=== PATIENT | female | born 1945 | race Caucasian/White ===

== ENCOUNTER 2022-11-05 12:03 | Emergency (ER) | payer MEDICARE, SELFPAY ==
[2022-11-05] VITALS (33 sets, daily range): BP systolic 101–157; BP diastolic 52–81; PULSE 62–113; RESP 9–25; TEMP 36.7; O2SAT 85–100; BMI 30.7
--- NOTE | 2022-11-05 12:12 | DI.RAD.S_ITS ---
PROCEDURE: XR CHEST 1V INDICATIONS: chest pain TECHNIQUE: One view of the chest was acquired. COMPARISON: None. FINDINGS: Surgical changes and devices: Surgical clips are noted in epigastric region and right upper quadrant abdomen.. Lungs and pleura: Lungs are clear. No pleural effusions or pneumothorax. Mediastinum: Mediastinal contours appear normal. Heart size is normal. Bones and chest wall: Ill-defined calcifications are noted in right breast. No suspicious bony lesions. Overlying soft tissues appear unremarkable. IMPRESSION: No acute cardiopulmonary pathology. Right breast calcifications suggest clinical correlation. Dictated by: Kervin Valderrama M.D. on 11/05/2022 at 12:29 Approved by: Kervin Valderrama M.D. on 11/05/2022 at 12:30
--- NOTE | 2022-11-05 12:29 | ED_ITS ---
HPI - Chest Pain <Kim Mason MD - Last Filed: 11/20/22 20:09> General Chief Complaint: Chest Pain Stated Complaint: chest pain Time Seen by Provider: 11/05/22 12:35 Source: patient and EMS Mode of arrival: EMS Limitations: no limitations History of Present Illness HPI narrative: Patient brought in by EMS from home for complaints of tired fatigued dizzy short of breath. Patient is scheduled to see her speech language pathology assistant in [place] tomorrow to schedule replacement of her aortic valve. It is stenotic she states. Patient just had heart catheterization in the past week and states coronary arteries were normal. Her source of tired fatigue dizziness shortness of breath is because of aortic stenosis. She is had echocardiogram in the last 2 months for this. She states she was able to complete tasks as usual prior to yesterday. She would occasionally get very tired if she pushed herself but yesterday with very little activity just walking in her home she became very short of breath dizzy and tired. It did not improve today so she called the ambulance. She states she is not here for chest pain. Ambulance did give her aspirin and nitroglycerin but she states did not make any significant changes. Patient sees cardiology Dr Gonzalez. Related Data Home Medications Medication Instructions Recorded Confirmed atorvastatin 20 mg tablet 20 mg PO DAILY 11/06/22 11/06/22 pantoprazole 40 mg tablet,delayed 40 mg PO DAILY 11/06/22 11/06/22 release warfarin 2 mg tablet See Rx Instructions .Route .COMPLEX 11/06/22 11/06/22 Allergies Allergy/AdvReac Type Severity Reaction Status Date / Time Sulfa (Sulfonamide Allergy Intermediate Rash Verified 11/05/22 12:12 Antibiotics) Review of Systems <Kim Mason MD - Last Filed: 11/20/22 20:09> Review of Systems Narrative: GENERAL: negative chills, positive fatigue, malaise, negative fever, sweats. HEENT: negative sinus pain, ear pain, sore throat RESPIRATORY: Positive dyspnea, negative cough CARDIOVASCULAR: negative chest pain, palpitations GASTROINTESTINAL: negative nausea, vomiting, abdominal pain : negative dysuria, frequency, hematuria MUSCULOSKELETAL: negative muscle or bony pain SKIN: negative rash, skin lesions NEUROLOGIC: negative weakness, numbness, positive dizziness ROS Unobtainable: All systems reviewed & are unremarkable except as noted in HPI and below Patient History <Kim Mason MD - Last Filed: 11/20/22 20:09> Medical History (Updated 11/06/22 @ 10:10 by Marie Fraser RN) GERD (gastroesophageal reflux disease) High cholesterol Social History Smoking Status: Never smoker Smoking Status: Never smoker alcohol intake frequency: a few times a week Substance Use Type: does not use Exam <Kim Mason MD - Last Filed: 11/20/22 20:09> Narrative Exam Narrative: GENERAL: in no distress, not toxic not dyspneic HEAD: Normocephalic. EYES: Pupils equal round ENT: Mucous membranes moist. NECK: Trachea midline. CARDIOVASCULAR: Regular rate and rhythm, there is a audible 4/5 systolic murmur RESPIRATORY: Clear to auscultation. Breath sounds equal bilaterally. No wheezes, rales, or rhonchi. GASTROINTESTINAL: Abdomen soft, non-tender EXTREMITIES: No gross deformities. No ankle edema BACK: No flank tenderness. NEURO: AOx4. SKIN: Warm and dry PSYCH: Not anxious, is cooperative Initial Vital Signs Initial Vital Signs: Vital Signs Pulse Rate 100 H 11/05/22 12:06 Blood Pressure 138/81 11/05/22 12:06 Pulse Oximetry 99 11/05/22 12:06 <Doc Bello DO - Last Filed: 11/06/22 18:06> Initial Vital Signs Initial Vital Signs: Vital Signs Pulse Rate 100 H 11/05/22 12:06 Blood Pressure 138/81 11/05/22 12:06 Pulse Oximetry 99 11/05/22 12:06 <Clark Varela DO - Last Filed: 11/06/22 13:59> Initial Vital Signs Initial Vital Signs: Vital Signs Pulse Rate 100 H 11/05/22 12:06 Blood Pressure 138/81 11/05/22 12:06 Pulse Oximetry 99 11/05/22 12:06 Course <Kim Mason MD - Last Filed: 11/20/22 20:09> Orders Ordered: Discontinued Medications Furosemide (Furosemide 40 Mg/4 Ml Vial) 20 mg IV NOW ONE Stop: 11/05/22 14:29 Last Admin: 11/05/22 15:17 Dose: 20 mg Documented By: NR Vital Signs Vital signs: Vital Signs - 8 hr 11/06/22 10:30 11/06/22 11:00 11/06/22 11:00 Pulse Rate 78 81 Respiratory Rate 20 20 Blood Pressure 121/63 Pulse Oximetry 96 99 Oxygen Delivery Method Oxygen Flow Rate 11/06/22 11:30 11/06/22 12:00 11/06/22 12:00 Pulse Rate 78 83 Respiratory Rate 21 22 Blood Pressure 124/59 L Pulse Oximetry 97 97 Oxygen Delivery Method Nasal Cannula Oxygen Flow Rate 1.5 11/06/22 12:30 11/06/22 13:00 11/06/22 13:00 Pulse Rate 83 84 Respiratory Rate 22 21 Blood Pressure 114/55 L Pulse Oximetry 98 98 Oxygen Delivery Method Nasal Cannula Nasal Cannula Oxygen Flow Rate 1.5 1.5 11/06/22 13:26 11/06/22 13:26 11/06/22 13:30 Pulse Rate 68 81 Respiratory Rate 24 22 Blood Pressure 126/70 Pulse Oximetry 99 98 Oxygen Delivery Method Nasal Cannula Oxygen Flow Rate 1.5 11/06/22 14:00 11/06/22 14:00 Pulse Rate 85 Respiratory Rate 20 Blood Pressure 120/62 Pulse Oximetry 100 Oxygen Delivery Method Oxygen Flow Rate <oDc Bello, DO - Last Filed: 11/06/22 18:06> Orders Ordered: Discontinued Medications Furosemide (Furosemide 40 Mg/4 Ml Vial) 20 mg IV NOW ONE Stop: 11/05/22 14:29 Last Admin: 11/05/22 15:17 Dose: 20 mg Documented By: NR Vital Signs Vital signs: Vital Signs - 8 hr 11/06/22 10:30 11/06/22 11:00 11/06/22 11:00 Pulse Rate 78 81 Respiratory Rate 20 20 Blood Pressure 121/63 Pulse Oximetry 96 99 Oxygen Delivery Method Oxygen Flow Rate 11/06/22 11:30 11/06/22 12:00 11/06/22 12:00 Pulse Rate 78 83 Respiratory Rate 21 22 Blood Pressure 124/59 L Pulse Oximetry 97 97 Oxygen Delivery Method Nasal Cannula Oxygen Flow Rate 1.5 11/06/22 12:30 11/06/22 13:00 11/06/22 13:00 Pulse Rate 83 84 Respiratory Rate 22 21 Blood Pressure 114/55 L Pulse Oximetry 98 98 Oxygen Delivery Method Nasal Cannula Nasal Cannula Oxygen Flow Rate 1.5 1.5 11/06/22 13:26 11/06/22 13:26 11/06/22 13:30 Pulse Rate 68 81 Respiratory Rate 24 22 Blood Pressure 126/70 Pulse Oximetry 99 98 Oxygen Delivery Method Nasal Cannula Oxygen Flow Rate 1.5 11/06/22 14:00 11/06/22 14:00 Pulse Rate 85 Respiratory Rate 20 Blood Pressure 120/62 Pulse Oximetry 100 Oxygen Delivery Method Oxygen Flow Rate <Clark Varela DO - Last Filed: 11/06/22 13:59> Orders Ordered: Discontinued Medications Furosemide (Furosemide 40 Mg/4 Ml Vial) 20 mg IV NOW ONE Stop: 11/05/22 14:29 Last Admin: 11/05/22 15:17 Dose: 20 mg Documented By: NR Vital Signs Vital signs: Vital Signs - 8 hr 11/06/22 10:30 11/06/22 11:00 11/06/22 11:00 Pulse Rate 78 81 Respiratory Rate 20 20 Blood Pressure 121/63 Pulse Oximetry 96 99 Oxygen Delivery Method Oxygen Flow Rate 11/06/22 11:30 11/06/22 12:00 11/06/22 12:00 Pulse Rate 78 83 Respiratory Rate 21 22 Blood Pressure 124/59 L Pulse Oximetry 97 97 Oxygen Delivery Method Nasal Cannula Oxygen Flow Rate 1.5 11/06/22 12:30 11/06/22 13:00 11/06/22 13:00 Pulse Rate 83 84 Respiratory Rate 22 21 Blood Pressure 114/55 L Pulse Oximetry 98 98 Oxygen Delivery Method Nasal Cannula Nasal Cannula Oxygen Flow Rate 1.5 1.5 11/06/22 13:26 11/06/22 13:26 11/06/22 13:30 Pulse Rate 68 81 Respiratory Rate 24 22 Blood Pressure 126/70 Pulse Oximetry 99 98 Oxygen Delivery Method Nasal Cannula Oxygen Flow Rate 1.5 11/06/22 14:00 11/06/22 14:00 Pulse Rate 85 Respiratory Rate 20 Blood Pressure 120/62 Pulse Oximetry 100 Oxygen Delivery Method Oxygen Flow Rate MDM - Chest Pain <Kim Mason MD - Last Filed: 11/20/22 20:09> Lab Data 11/06/22 10:15 11/06/22 10:15 Labs: Lab Results 11/05/22 11/05/22 11/05/22 Range/Units 12:04 12:04 12:04 WBC 6.8 (4.5-11.0) X10^3/uL RBC 4.97 (4.0-5.2) X10^6/uL Hgb 14.2 (12.0-16.0) g/dL Hct 41.6 (36-46) % MCV 83.7 (80-100) fL MCH 28.5 (26-34) PG MCHC 34.0 (30-36) % RDW 14.9 H (11.6-14.8) % Plt Count 264 (150-400) X10^3/uL Neut % (Auto) 74.4 (50-75) % Lymph % (Auto) 17.0 L (25-40) % Saline % (Auto) 5.1 (3-14) % Eos % (Auto) 2.6 (2-4) % Baso % (Auto) 0.9 (0-2) % Neut # (Auto) 5000 (7710-8984) /uL Lymph # (Auto) 1200 (6893-3295) /uL Saline # (Auto) 300 (0-900) /uL Eos # (Auto) 200 (0-450) /uL Baso # (Auto) 100 (0-100) /uL PT (10.1-12.7) SECONDS INR (0.9-1.3) APTT (26-36) SECONDS Sodium 140 (137-145) mmol/L Potassium 4.2 (3.4-5.1) mmol/L Chloride 103 (98-107) mmol/L Carbon Dioxide 28 (22-32) mmol/L BUN 16 (7-17) mg/dL Creatinine 1.11 H (0.52-1.04) mg/dL Estimated GFR 51 L (>60) mL/min BUN/Creatinine Ratio 14.4 (6-22) Glucose 107 (80-110) mg/dL Calcium 9.5 (8.4-10.2) mg/dL Total Bilirubin 0.8 (0.2-1.3) mg/dL AST 22 (14-36) IU/L ALT 17 (<35) IU/L Alkaline Phosphatase 131 H (38-126) U/L Total Creatine Kinase 49 (30-135) U/L CK-MB (CK-2) TNP CK-MB (CK-2) Rel Index TNP Troponin I < 0.012 (0.01-0.034) ng/mL NT-Pro-B Natriuret Pep 354 (<450) pg/mL Total Protein 7.6 (6.3-8.2) g/dL Albumin 4.1 (3.5-5.0) g/dL Globulin 3.5 (1.7-4.1) g/dL Albumin/Globulin Ratio 1.2 (1.0-2.8) Lipase 176 (23-300) U/L Urine RBC (0-5/HPF) Urine WBC (0-5/HPF) Ur Squamous Epith Cells (0-5/HPF) Urine Bacteria (None) Ur Culture Indicated? SARS-CoV-2 (PCR) (Negative) 11/05/22 11/05/22 11/05/22 Range/Units 13:02 14:10 18:26 WBC (4.5-11.0) X10^3/uL RBC (4.0-5.2) X10^6/uL Hgb (12.0-16.0) g/dL Hct (36-46) % MCV (80-100) fL MCH (26-34) PG MCHC (30-36) % RDW (11.6-14.8) % Plt Count (150-400) X10^3/uL Neut % (Auto) (50-75) % Lymph % (Auto) (25-40) % Saline % (Auto) (3-14) % Eos % (Auto) (2-4) % Baso % (Auto) (0-2) % Neut # (Auto) (9898-1266) /uL Lymph # (Auto) (8131-3388) /uL Saline # (Auto) (0-900) /uL Eos # (Auto) (0-450) /uL Baso # (Auto) (0-100) /uL PT (10.1-12.7) SECONDS INR (0.9-1.3) APTT (26-36) SECONDS Sodium (137-145) mmol/L Potassium (3.4-5.1) mmol/L Chloride (98-107) mmol/L Carbon Dioxide (22-32) mmol/L BUN (7-17) mg/dL Creatinine (0.52-1.04) mg/dL Estimated GFR (>60) mL/min BUN/Creatinine Ratio (6-22) Glucose (80-110) mg/dL Calcium (8.4-10.2) mg/dL Total Bilirubin (0.2-1.3) mg/dL AST (14-36) IU/L ALT (<35) IU/L Alkaline Phosphatase (38-126) U/L Total Creatine Kinase (30-135) U/L CK-MB (CK-2) CK-MB (CK-2) Rel Index Troponin I < 0.012 (0.01-0.034) ng/mL NT-Pro-B Natriuret Pep (<450) pg/mL Total Protein (6.3-8.2) g/dL Albumin (3.5-5.0) g/dL Globulin (1.7-4.1) g/dL Albumin/Globulin Ratio (1.0-2.8) Lipase (23-300) U/L Urine RBC 0-1/hpf (0-5/HPF) Urine WBC 0-1/hpf (0-5/HPF) Ur Squamous Epith Cells 0-1 /hpf (0-5/HPF) Urine Bacteria Occasional (0-1) (None) Ur Culture Indicated? Cult not indicated SARS-CoV-2 (PCR) Negative (Negative) 11/06/22 11/06/22 11/06/22 Range/Units 10:15 10:15 10:15 WBC 7.1 (4.5-11.0) X10^3/uL RBC 4.94 (4.0-5.2) X10^6/uL Hgb 14.1 (12.0-16.0) g/dL Hct 41.3 (36-46) % MCV 83.6 (80-100) fL MCH 28.6 (26-34) PG MCHC 34.2 (30-36) % RDW 14.9 H (11.6-14.8) % Plt Count 264 (150-400) X10^3/uL Neut % (Auto) 72.8 (50-75) % Lymph % (Auto) 17.1 L (25-40) % Saline % (Auto) 7.2 (3-14) % Eos % (Auto) 2.1 (2-4) % Baso % (Auto) 0.8 (0-2) % Neut # (Auto) 5200 (0701-8864) /uL Lymph # (Auto) 1200 (5788-7624) /uL Saline # (Auto) 500 (0-900) /uL Eos # (Auto) 100 (0-450) /uL Baso # (Auto) 100 (0-100) /uL PT 27.5 H (10.1-12.7) SECONDS INR 2.4 H (0.9-1.3) APTT 38 H (26-36) SECONDS Sodium 136 L (137-145) mmol/L Potassium 4.6 (3.4-5.1) mmol/L Chloride 101 (98-107) mmol/L Carbon Dioxide 24 (22-32) mmol/L BUN 18 H (7-17) mg/dL Creatinine 1.01 (0.52-1.04) mg/dL Estimated GFR 57 L (>60) mL/min BUN/Creatinine Ratio 17.8 (6-22) Glucose 116 H (80-110) mg/dL Calcium 9.1 (8.4-10.2) mg/dL Total Bilirubin 1.0 (0.2-1.3) mg/dL AST 27 (14-36) IU/L ALT 18 (<35) IU/L Alkaline Phosphatase 99 (38-126) U/L Total Creatine Kinase 49 (30-135) U/L CK-MB (CK-2) TNP CK-MB (CK-2) Rel Index TNP Troponin I < 0.012 (0.01-0.034) ng/mL NT-Pro-B Natriuret Pep (<450) pg/mL Total Protein 7.5 (6.3-8.2) g/dL Albumin 4.0 (3.5-5.0) g/dL Globulin 3.5 (1.7-4.1) g/dL Albumin/Globulin Ratio 1.1 (1.0-2.8) Lipase (23-300) U/L Urine RBC (0-5/HPF) Urine WBC (0-5/HPF) Ur Squamous Epith Cells (0-5/HPF) Urine Bacteria (None) Ur Culture Indicated? SARS-CoV-2 (PCR) (Negative) Urine Dip Bedside Urine Glucose Negative Bedside Urine Bilirubin - Negative Bedside Urine Ketone - Negative Urine Specific [place] 1.000 Bedside Urine Occult Blood - Negative Bedside Urine pH 7.5 Bedside Urine Protein - Negative Bedside Urine Urobilinogen - Negative Bedside Urine Nitrite - Negative Bedside Urine Leukocytes +/- 15 Esterase Imaging Data Chest x-ray: Radiologist's Impression: [address] [address] XRay Report Signed Patient: Violetta Zelaya MR#: [id number] : 1945 Acct:[id number] Age/Sex: 77 / F Date of Service: 11/05/22 Loc: ED Accession Number: [id number] ?? Procedure: XR chest 1V Ordering Provider: Kim Mason MD PROCEDURE:? XR CHEST 1V ? INDICATIONS:? chest pain ? TECHNIQUE:? One view of the chest was acquired.? ? COMPARISON:? None. ? FINDINGS:? ? Surgical changes and devices:? Surgical clips are noted in epigastric region and right upper quadrant abdomen..? ? Lungs and pleura:? Lungs are clear.? No pleural effusions or pneumothorax.? ? Mediastinum:? Mediastinal contours appear normal.? Heart size is normal.? ? Bones and chest wall:? Ill-defined calcifications are noted in right breast.? No suspicious bony lesions.? Overlying soft tissues appear unremarkable.? ? IMPRESSION:? No acute cardiopulmonary pathology. Right breast calcifications suggest clinical correlation.? ? Dictated by: Kervin Valderrama M.D. on 11/05/2022 at 12:29 ? ? Approved by: Kervin Valderrama M.D. on 11/05/2022 at 12:30 ? Echocardiogram: Radiologist's Impression: [address] [address] Echocardiography Report Signed Patient: Violetta Zelaya MR#: [id number] : 1945 Acct:[id number] Age/Sex: 77 / F Date of Service: 11/05/22 Loc: ED Accession Number: [id number] ?? Procedure: EC echo doppler complete Ordering Provider: Kim Mason MD ? [facility] +---------+? Hospital? +---------+ : ? :? [address] ? : ? : : ? :? [place], [place] ? : ? : : ? :? [id number] ? : ? : : ? : ? Phone: [phone] : ? : +[phone]? [phone]? +---------+ ? Echocardiogram Report + + :Name: VIOLETTA ZELAYA ? Study Date: 11/05/2022 ? Height: 66 in? : :[facility] ? ? ReadingLocation: ? Weight: 190 lb : : ? Gender: Female ? BSA: 2.0 m2? ? : :: 1945? Age: 77 yrs? BP: 121/60 mmHg: :Reason For Study: DYSPNEA? : :Ordering Physician: MARLON,? : :KIM? Performed By: Yadira Vang? : :Referring: KIM MASON ? : + + Interpretation Summary 1) Normal left ventricular thickness, size, wall motion, and systolic function (EF 55-60%). 2) Normal right ventricular size with low normal function. 3) There is severe aortic stenosis (valve area 0.6cm2, mean gradient 43mmHg, severity ratio 0.23). 4) There is mild aortic regurgitation. 5) No prior Echo available for comparison. Recommend cardiology consult for severe aortic stenosis. ? Procedure: ? A two-dimensional transthoracic echocardiogram with color flow and Doppler was performed. Best images were from [facility]. There is no prior echocardiogram noted for this patient. The patient was in sinus rhythm with heart rates between 63-79 bpm during the exam. Left Ventricle: ? The left ventricle is normal in size and wall thickness. The ejection fraction is estimated to be 55-60%. Left ventricular systolic function appears normal without focal wall motion abnormalities. Diastolic parameters suggest a relaxation abnormality of the left ventricle, consistent with probable normal filling pressures. Right Ventricle: ? The right ventricle is normal size. Right ventricular systolic function is at the lower limits of normal. Atria: ? The left atrial size is normal. Right atrial size is normal. There is no Doppler evidence for an interatrial shunt. Mitral Valve: ? Calcified mitral apparatus. The mitral valve leaflets are moderately calcified. There is mild mitral stenosis. The mitral valve mean gradient is 3.8 mmHg. There is mild mitral regurgitation. Aortic Valve: ? There is severe aortic stenosis. The peak aortic velocity is 4.3 m/sec. The aortic valve mean gradient is 43 mmHg. The calculated aortic valve area is 0.58 cm2. There is mild aortic regurgitation. Tricuspid Valve: ? The tricuspid valve leaflets are thin and pliable. There is mild tricuspid regurgitation. The right ventricular systolic pressure is estimated to be at least 22 mmHg based on an estimated right atrial pressure of 3 mm Hg. Pulmonic Valve: ? The pulmonic valve is not well visualized. There is no pulmonic valvular regurgitation. Great Vessels: ? The aortic root is normal size. The dimensions of the ascending aorta are normal. The IVC is of normal diameter and collapses greater than 50% with a sniff. This suggests a low right atrial pressure of 3 mm Hg. Pericardium/ Pleura ? There is no pericardial effusion. There is no pleural effusion. ? MMode/2D Measurements & Calculations LVIDd: 3.9 cm? LVOT diam: 1.9 cm LVIDs: 2.5 cm? Ao root diam: 2.9 cm FS: 35.4 % ? asc Aorta Diam: 3.0 cm IVSd: 0.82 cm? Ao Arch Diam (Prox Trans): 2.5 cm LVPWd: 0.84 cm LV hill. diameter/BSA (cm/m^2): 2.0 LV sys. diameter/BSA (cm/m^2): 1.3 ? LA A2 area: 23.2 cm2 ? RA long axis: 5.3 cm LA A4 area: 16.5 cm2 ? RA area: 13.8 cm2 LA length (vol): 5.4 cm? RA vol: 30.4 ml LA vol: 60.7 ml? RA : 15.6 ml/m2 LA vol index: 31.0 ml/m2 ? IVC diam: 0.91 cm ? RVD1 (basal): 3.1 cm RVD2 (mid): 2.6 cm TAPSE: 1.6 cm ? Doppler Measurements & Calculations Ao V2 max: 425.2 cm/sec? LVOT Max Lennox: 88.6 cm/sec Ao V2 mean: 312.5 cm/sec ? LV V1 max P.1 mmHg Ao max P.3 mmHg ? LV V1 VTI: 20.9 cm Ao mean P.4 mmHg? SHAWN(I,D): 0.64 cm2 Ao V2 VTI: 91.6 cm ? SHAWN(V,D): 0.58 cm2 ? sev ratio: 0.23 ? SHAWN indexed to BSA (cm^2/m^2): 0.32 ? AI P1/2t: 670.3 msec ? AI dec slope: 158.8 cm/sec2 ? MV E max lennox: 104.9 cm/sec ? ? ? TR max lennox: 220.0 cm/sec MV A max lennox: 157.6 cm/sec ? ? ? TR max P.4 mmHg MV E/A: 0.67 ? PA V2 max: 116.0 cm/sec Med Peak E' Lennox: 5.1 cm/sec? ? ? PA V2 mean: 69.8 cm/sec E/E' med: 20.5 ? PA mean P.3 mmHg Lat Peak E' Lennox: 8.4 cm/sec? ? ? PA pr(Accel): 36.2 mmHg E/E' lat: 12.4 E/e' average: 16.5 MV dec time: 0.50 sec MVA(VTI): 1.2 cm2 ? MV V2 mean: 90.1 cm/sec? SV(LVOT): 58.2 ml MV mean P.8 mmHg MV V2 VTI: 47.7 cm ? Reading Physician:04:37 PM [facility] Narrative Medical decision making narrative: Patient brought in by EMS from home for complaints of tired fatigued dizzy short of breath. Patient is scheduled to see her speech language pathology assistant in [place] tomorrow to schedule replacement of her aortic valve. It is stenotic she states. Patient just had heart catheterization in the past week and states coronary arteries were normal. Her source of tired fatigue dizziness shortness of breath is because of aortic stenosis. She is had echocardiogram in the last 2 months for this. She states she was able to complete tasks as usual prior to yesterday. She would occasionally get very tired if she pushed herself but yesterday with very little activity just walking in her home she became very short of breath dizzy and tired. It did not improve today so she called the ambulance. She states she is not here for chest pain. Ambulance did give her aspirin and nitroglycerin but she states did not make any significant changes. Patient sees cardiology Dr Gonzalez. After history and exam CBC CMP EKG troponin chest x-ray [facility] CC: Dizziness dyspnea Complicating co-morbidities: Aortic stenosis Data collected from: Patient and EMS Medical records reviewed: No recent visits here for this complaint Differential considered: Includes but not limited to aortic stenosis aortic regurgitation CHF STEMI non-STEMI angina Exam documented above, pertinent findings include: Systolic murmur Lab Test results independently reviewed as above. Pertinent findings: COVID negative WBC 6.8 hemoglobin 14.2 sodium 140 potassium 4.2 BUN 16 creatinine 1.1 GFR 51 troponin less than 0.012 x2, BNP 354 Independently reviewed EKG normal sinus rhythm, rate [address] elevation or depression Repeat EKG at 2:04 p.m.. Normal sinus rhythm normal EKG rate [address] elevation or depression Imaging studies independently reviewed: Chest x-ray no acute finding Echocardiogram shows severe aortic stenosis Consultations: 2:15 p.m.. Spoke with patient's speech language pathology assistant services for Dr. Gonzalez, no indication to transfer patient. He instructs for patient to have Lasix here to reduce likely pulmonary hypertension and despite BNP or chest x- ray this will likely improve her dyspnea. If improves in the emergency department can discharge on p.o. medication Lasix otherwise will need to admit overnight 6:30 p.m.. Spoke with [facility] Cardiology dr Bernabe, she is on-call for patient's speech language pathology assistant. At this time no emergent surgery for her aortic valve. However patient is 88% on ambulating and is hypoxic. Patient can be admitted to hospitalist Treatments: Lasix Re-evaluations: 2:30 p.m.. Updated patient my discussion with her cardiology team. She does agree to try for Lasix. 5:[address] failed [address] test. Became very dizzy and short of breath just walking less than 30 ft. I did review with her she will likely need to be transferred to [facility] for continuity of care as we do not have cardiology services here as well as pulmonary. Discussion: Appropriate for transfer. We do not have cardiology services here or pulmonary services. Patient is source of dyspnea likely aortic stenosis ge tting worse. Diagnosis: Dyspnea 6:50 p.m. Marlon: Sign out to Dr Bello, awaiting call back from hospitalist [facility] for continuity of care. Patient hypoxic 88% room air when trying to walk and very dizzy and weak. CT angiogram chest is pending results <Doc Bello DO - Last Filed: 11/06/22 18:06> Lab Data Labs: Lab Results 11/05/22 11/05/22 11/05/22 Range/Units 12:04 12:04 12:04 WBC 6.8 (4.5-11.0) X10^3/uL RBC 4.97 (4.0-5.2) X10^6/uL Hgb 14.2 (12.0-16.0) g/dL Hct 41.6 (36-46) % MCV 83.7 (80-100) fL MCH 28.5 (26-34) PG MCHC 34.0 (30-36) % RDW 14.9 H (11.6-14.8) % Plt Count 264 (150-400) X10^3/uL Neut % (Auto) 74.4 (50-75) % Lymph % (Auto) 17.0 L (25-40) % Saline % (Auto) 5.1 (3-14) % Eos % (Auto) 2.6 (2-4) % Baso % (Auto) 0.9 (0-2) % Neut # (Auto) 5000 (2467-4900) /uL Lymph # (Auto) 1200 (9143-2134) /uL Saline # (Auto) 300 (0-900) /uL Eos # (Auto) 200 (0-450) /uL Baso # (Auto) 100 (0-100) /uL PT (10.1-12.7) SECONDS INR (0.9-1.3) APTT (26-36) SECONDS Sodium 140 (137-145) mmol/L Potassium 4.2 (3.4-5.1) mmol/L Chloride 103 (98-107) mmol/L Carbon Dioxide 28 (22-32) mmol/L BUN 16 (7-17) mg/dL Creatinine 1.11 H (0.52-1.04) mg/dL Estimated GFR 51 L (>60) mL/min BUN/Creatinine Ratio 14.4 (6-22) Glucose 107 (80-110) mg/dL Calcium 9.5 (8.4-10.2) mg/dL Total Bilirubin 0.8 (0.2-1.3) mg/dL AST 22 (14-36) IU/L ALT 17 (<35) IU/L Alkaline Phosphatase 131 H (38-126) U/L Total Creatine Kinase 49 (30-135) U/L CK-MB (CK-2) TNP CK-MB (CK-2) Rel Index TNP Troponin I < 0.012 (0.01-0.034) ng/mL NT-Pro-B Natriuret Pep 354 (<450) pg/mL Total Protein 7.6 (6.3-8.2) g/dL Albumin 4.1 (3.5-5.0) g/dL Globulin 3.5 (1.7-4.1) g/dL Albumin/Globulin Ratio 1.2 (1.0-2.8) Lipase 176 (23-300) U/L Urine RBC (0-5/HPF) Urine WBC (0-5/HPF) Ur Squamous Epith Cells (0-5/HPF) Urine Bacteria (None) Ur Culture Indicated? SARS-CoV-2 (PCR) (Negative) 11/05/22 11/05/22 11/05/22 Range/Units 13:02 14:10 18:26 WBC (4.5-11.0) X10^3/uL RBC (4.0-5.2) X10^6/uL Hgb (12.0-16.0) g/dL Hct (36-46) % MCV (80-100) fL MCH (26-34) PG MCHC (30-36) % RDW (11.6-14.8) % Plt Count (150-400) X10^3/uL Neut % (Auto) (50-75) % Lymph % (Auto) (25-40) % Saline % (Auto) (3-14) % Eos % (Auto) (2-4) % Baso % (Auto) (0-2) % Neut # (Auto) (2439-0600) /uL Lymph # (Auto) (0601-3332) /uL Saline # (Auto) (0-900) /uL Eos # (Auto) (0-450) /uL Baso # (Auto) (0-100) /uL PT (10.1-12.7) SECONDS INR (0.9-1.3) APTT (26-36) SECONDS Sodium (137-145) mmol/L Potassium (3.4-5.1) mmol/L Chloride (98-107) mmol/L Carbon Dioxide (22-32) mmol/L BUN (7-17) mg/dL Creatinine (0.52-1.04) mg/dL Estimated GFR (>60) mL/min BUN/Creatinine Ratio (6-22) Glucose (80-110) mg/dL Calcium (8.4-10.2) mg/dL Total Bilirubin (0.2-1.3) mg/dL AST (14-36) IU/L ALT (<35) IU/L Alkaline Phosphatase (38-126) U/L Total Creatine Kinase (30-135) U/L CK-MB (CK-2) CK-MB (CK-2) Rel Index Troponin I < 0.012 (0.01-0.034) ng/mL NT-Pro-B Natriuret Pep (<450) pg/mL Total Protein (6.3-8.2) g/dL Albumin (3.5-5.0) g/dL Globulin (1.7-4.1) g/dL Albumin/Globulin Ratio (1.0-2.8) Lipase (23-300) U/L Urine RBC 0-1/hpf (0-5/HPF) Urine WBC 0-1/hpf (0-5/HPF) Ur Squamous Epith Cells 0-1 /hpf (0-5/HPF) Urine Bacteria Occasional (0-1) (None) Ur Culture Indicated? Cult not indicated SARS-CoV-2 (PCR) Negative (Negative) 11/06/22 11/06/22 11/06/22 Range/Units 10:15 10:15 10:15 WBC 7.1 (4.5-11.0) X10^3/uL RBC 4.94 (4.0-5.2) X10^6/uL Hgb 14.1 (12.0-16.0) g/dL Hct 41.3 (36-46) % MCV 83.6 (80-100) fL MCH 28.6 (26-34) PG MCHC 34.2 (30-36) % RDW 14.9 H (11.6-14.8) % Plt Count 264 (150-400) X10^3/uL Neut % (Auto) 72.8 (50-75) % Lymph % (Auto) 17.1 L (25-40) % Saline % (Auto) 7.2 (3-14) % Eos % (Auto) 2.1 (2-4) % Baso % (Auto) 0.8 (0-2) % Neut # (Auto) 5200 (0252-5649) /uL Lymph # (Auto) 1200 (9699-8473) /uL Saline # (Auto) 500 (0-900) /uL Eos # (Auto) 100 (0-450) /uL Baso # (Auto) 100 (0-100) /uL PT 27.5 H (10.1-12.7) SECONDS INR 2.4 H (0.9-1.3) APTT 38 H (26-36) SECONDS Sodium 136 L (137-145) mmol/L Potassium 4.6 (3.4-5.1) mmol/L Chloride 101 (98-107) mmol/L Carbon Dioxide 24 (22-32) mmol/L BUN 18 H (7-17) mg/dL Creatinine 1.01 (0.52-1.04) mg/dL Estimated GFR 57 L (>60) mL/min BUN/Creatinine Ratio 17.8 (6-22) Glucose 116 H (80-110) mg/dL Calcium 9.1 (8.4-10.2) mg/dL Total Bilirubin 1.0 (0.2-1.3) mg/dL AST 27 (14-36) IU/L ALT 18 (<35) IU/L Alkaline Phosphatase 99 (38-126) U/L Total Creatine Kinase 49 (30-135) U/L CK-MB (CK-2) TNP CK-MB (CK-2) Rel Index TNP Troponin I < 0.012 (0.01-0.034) ng/mL NT-Pro-B Natriuret Pep (<450) pg/mL Total Protein 7.5 (6.3-8.2) g/dL Albumin 4.0 (3.5-5.0) g/dL Globulin 3.5 (1.7-4.1) g/dL Albumin/Globulin Ratio 1.1 (1.0-2.8) Lipase (23-300) U/L Urine RBC (0-5/HPF) Urine WBC (0-5/HPF) Ur Squamous Epith Cells (0-5/HPF) Urine Bacteria (None) Ur Culture Indicated? SARS-CoV-2 (PCR) (Negative) Urine Dip Bedside Urine Glucose Negative Bedside Urine Bilirubin - Negative Bedside Urine Ketone - Negative Urine Specific [place] 1.000 Bedside Urine Occult Blood - Negative Bedside Urine pH 7.5 Bedside Urine Protein - Negative Bedside Urine Urobilinogen - Negative Bedside Urine Nitrite - Negative Bedside Urine Leukocytes +/- 15 Esterase MDM Narrative Medical decision making narrative: Patient brought in by EMS from home for complaints of tired fatigued dizzy short of breath. Patient is scheduled to see her speech language pathology assistant in [place] tomorrow to schedule replacement of her aortic valve. It is stenotic she states. Patient just had heart catheterization in the past week and states coronary arteries were normal. Her source of tired fatigue dizziness shortness of breath is because of aortic stenosis. She is had echocardiogram in the last 2 months for this. She states she was able to complete tasks as usual prior to yesterday. She would occasionally get very tired if she pushed herself but yesterday with very little activity just walking in her home she became very short of breath dizzy and tired. It did not improve today so she called the ambulance. She states she is not here for chest pain. Ambulance did give her aspirin and nitroglycerin but she states did not make any significant changes. Patient sees cardiology Dr Gonzalez. After history and exam CBC CMP EKG troponin chest x-ray MDM CC: Dizziness dyspnea Complicating co-morbidities: Aortic stenosis Data collected from: Patient and EMS Medical records reviewed: No recent visits here for this complaint Differential considered: Includes but not limited to aortic stenosis aortic regurgitation CHF STEMI non-STEMI angina Exam documented above, pertinent findings include: Systolic murmur Lab Test results independently reviewed as above. Pertinent findings: COVID negative WBC 6.8 hemoglobin 14.2 sodium 140 potassium 4.2 BUN 16 creatinine 1.1 GFR 51 troponin less than 0.012 x2, BNP 354 Independently reviewed EKG normal sinus rhythm, rate [address] elevation or depression Repeat EKG at 2:04 p.m.. Normal sinus rhythm normal EKG rate [address] elevation or depression Imaging studies independently reviewed: Chest x-ray no acute finding Echocardiogram shows severe aortic stenosis Consultations: 2:15 p.m.. Spoke with patient's speech language pathology assistant services for Dr. Gonzalez, no indication to transfer patient. He instructs for patient to have Lasix here to reduce likely pulmonary hypertension and despite BNP or chest x- ray this will likely improve her dyspnea. If improves in the emergency department can discharge on p.o. medication Lasix otherwise will need to admit overnight 6:30 p.m.. Spoke with [facility] Cardiology dr Bernabe, she is on-call for patient's speech language pathology assistant. At this time no emergent surgery for her aortic valve. However patient is 88% on ambulating and is hypoxic. Patient can be admitted to hospitalist Treatments: Lasix Re-evaluations: 2:30 p.m.. Updated patient my discussion with her cardiology team. She does agree to try for Lasix. 5:[address] Patient failed road test. Became very dizzy and short of breath just walking less than 30 ft. I did review with her she will likely need to be transferred to [facility] for continuity of care as we do not have cardiology services here as well as pulmonary. Discussion: Appropriate for transfer. We do not have cardiology services here or pulmonary services. Patient is source of dyspnea likely aortic stenosis g etting worse. Diagnosis: Dyspnea 6:50 p.m. Brennick: Sign out to Dr Bello, awaiting call back from hospitalist for [facility] for continuity of care. Patient hypoxic 88% room air when trying to walk and very dizzy and weak. CT angiogram chest is pending results Dr Bello: Received turned over. Review patient's history and physical exam. Patient has been stable overnight. Has not been hypotensive. Patient has become dyspneic on exertion and hypoxic on exertion. I did discuss the case with hospitalist at [facility] who accepts the patient for transfer. Patient is stable for transport. We are awaiting bed placement. Care turned over to day provider to continue to observe until disposition. <Clark Varela, - Last Filed: 06/21/23 13:59> Lab Data Labs: Lab Results 11/05/22 11/05/22 11/05/22 Range/Units 12:04 12:04 12:04 WBC 6.8 (4.5-11.0) X10^3/uL RBC 4.97 (4.0-5.2) X10^6/uL Hgb 14.2 (12.0-16.0) g/dL Hct 41.6 (36-46) % MCV 83.7 (80-100) fL MCH 28.5 (26-34) PG MCHC 34.0 (30-36) % RDW 14.9 H (11.6-14.8) % Plt Count 264 (150-400) X10^3/uL Neut % (Auto) 74.4 (50-75) % Lymph % (Auto) 17.0 L (25-40) % Saline % (Auto) 5.1 (3-14) % Eos % (Auto) 2.6 (2-4) % Baso % (Auto) 0.9 (0-2) % Neut # (Auto) 5000 (6536-5429) /uL Lymph # (Auto) 1200 (8220-5889) /uL Saline # (Auto) 300 (0-900) /uL Eos # (Auto) 200 (0-450) /uL Baso # (Auto) 100 (0-100) /uL PT (10.1-12.7) SECONDS INR (0.9-1.3) APTT (26-36) SECONDS Sodium 140 (137-145) mmol/L Potassium 4.2 (3.4-5.1) mmol/L Chloride 103 (98-107) mmol/L Carbon Dioxide 28 (22-32) mmol/L BUN 16 (7-17) mg/dL Creatinine 1.11 H (0.52-1.04) mg/dL Estimated GFR 51 L (>60) mL/min BUN/Creatinine Ratio 14.4 (6-22) Glucose 107 (80-110) mg/dL Calcium 9.5 (8.4-10.2) mg/dL Total Bilirubin 0.8 (0.2-1.3) mg/dL AST 22 (14-36) IU/L ALT 17 (<35) IU/L Alkaline Phosphatase 131 H (38-126) U/L Total Creatine Kinase 49 (30-135) U/L CK-MB (CK-2) TNP CK-MB (CK-2) Rel Index TNP Troponin I < 0.012 (0.01-0.034) ng/mL NT-Pro-B Natriuret Pep 354 (<450) pg/mL Total Protein 7.6 (6.3-8.2) g/dL Albumin 4.1 (3.5-5.0) g/dL Globulin 3.5 (1.7-4.1) g/dL Albumin/Globulin Ratio 1.2 (1.0-2.8) Lipase 176 (23-300) U/L Urine RBC (0-5/HPF) Urine WBC (0-5/HPF) Ur Squamous Epith Cells (0-5/HPF) Urine Bacteria (None) Ur Culture Indicated? SARS-CoV-2 (PCR) (Negative) 11/05/22 11/05/22 11/05/22 Range/Units 13:02 14:10 18:26 WBC (4.5-11.0) X10^3/uL RBC (4.0-5.2) X10^6/uL Hgb (12.0-16.0) g/dL Hct (36-46) % MCV (80-100) fL MCH (26-34) PG MCHC (30-36) % RDW (11.6-14.8) % Plt Count (150-400) X10^3/uL Neut % (Auto) (50-75) % Lymph % (Auto) (25-40) % Saline % (Auto) (3-14) % Eos % (Auto) (2-4) % Baso % (Auto) (0-2) % Neut # (Auto) (2810-2539) /uL Lymph # (Auto) (4768-8429) /uL Saline # (Auto) (0-900) /uL Eos # (Auto) (0-450) /uL Baso # (Auto) (0-100) /uL PT (10.1-12.7) SECONDS INR (0.9-1.3) APTT (26-36) SECONDS Sodium (137-145) mmol/L Potassium (3.4-5.1) mmol/L Chloride (98-107) mmol/L Carbon Dioxide (22-32) mmol/L BUN (7-17) mg/dL Creatinine (0.52-1.04) mg/dL Estimated GFR (>60) mL/min BUN/Creatinine Ratio (6-22) Glucose (80-110) mg/dL Calcium (8.4-10.2) mg/dL Total Bilirubin (0.2-1.3) mg/dL AST (14-36) IU/L ALT (<35) IU/L Alkaline Phosphatase (38-126) U/L Total Creatine Kinase (30-135) U/L CK-MB (CK-2) CK-MB (CK-2) Rel Index Troponin I < 0.012 (0.01-0.034) ng/mL NT-Pro-B Natriuret Pep (<450) pg/mL Total Protein (6.3-8.2) g/dL Albumin (3.5-5.0) g/dL Globulin (1.7-4.1) g/dL Albumin/Globulin Ratio (1.0-2.8) Lipase (23-300) U/L Urine RBC 0-1/hpf (0-5/HPF) Urine WBC 0-1/hpf (0-5/HPF) Ur Squamous Epith Cells 0-1 /hpf (0-5/HPF) Urine Bacteria Occasional (0-1) (None) Ur Culture Indicated? Cult not indicated SARS-CoV-2 (PCR) Negative (Negative) 11/06/22 11/06/22 11/06/22 Range/Units 10:15 10:15 10:15 WBC 7.1 (4.5-11.0) X10^3/uL RBC 4.94 (4.0-5.2) X10^6/uL Hgb 14.1 (12.0-16.0) g/dL Hct 41.3 (36-46) % MCV 83.6 (80-100) fL MCH 28.6 (26-34) PG MCHC 34.2 (30-36) % RDW 14.9 H (11.6-14.8) % Plt Count 264 (150-400) X10^3/uL Neut % (Auto) 72.8 (50-75) % Lymph % (Auto) 17.1 L (25-40) % Saline % (Auto) 7.2 (3-14) % Eos % (Auto) 2.1 (2-4) % Baso % (Auto) 0.8 (0-2) % Neut # (Auto) 5200 (4255-6755) /uL Lymph # (Auto) 1200 (2949-8734) /uL Saline # (Auto) 500 (0-900) /uL Eos # (Auto) 100 (0-450) /uL Baso # (Auto) 100 (0-100) /uL PT 27.5 H (10.1-12.7) SECONDS INR 2.4 H (0.9-1.3) APTT 38 H (26-36) SECONDS Sodium 136 L (137-145) mmol/L Potassium 4.6 (3.4-5.1) mmol/L Chloride 101 (98-107) mmol/L Carbon Dioxide 24 (22-32) mmol/L BUN 18 H (7-17) mg/dL Creatinine 1.01 (0.52-1.04) mg/dL Estimated GFR 57 L (>60) mL/min BUN/Creatinine Ratio 17.8 (6-22) Glucose 116 H (80-110) mg/dL Calcium 9.1 (8.4-10.2) mg/dL Total Bilirubin 1.0 (0.2-1.3) mg/dL AST 27 (14-36) IU/L ALT 18 (<35) IU/L Alkaline Phosphatase 99 (38-126) U/L Total Creatine Kinase 49 (30-135) U/L CK-MB (CK-2) TNP CK-MB (CK-2) Rel Index TNP Troponin I < 0.012 (0.01-0.034) ng/mL NT-Pro-B Natriuret Pep (<450) pg/mL Total Protein 7.5 (6.3-8.2) g/dL Albumin 4.0 (3.5-5.0) g/dL Globulin 3.5 (1.7-4.1) g/dL Albumin/Globulin Ratio 1.1 (1.0-2.8) Lipase (23-300) U/L Urine RBC (0-5/HPF) Urine WBC (0-5/HPF) Ur Squamous Epith Cells (0-5/HPF) Urine Bacteria (None) Ur Culture Indicated? SARS-CoV-2 (PCR) (Negative) Urine Dip Bedside Urine Glucose Negative Bedside Urine Bilirubin - Negative Bedside Urine Ketone - Negative Urine Specific [place] 1.000 Bedside Urine Occult Blood - Negative Bedside Urine pH 7.5 Bedside Urine Protein - Negative Bedside Urine Urobilinogen - Negative Bedside Urine Nitrite - Negative Bedside Urine Leukocytes +/- 15 Esterase MDM Narrative Medical decision making narrative: Patient brought in by EMS from home for complaints of tired fatigued dizzy short of breath. Patient is scheduled to see her speech language pathology assistant in [place] tomorrow to schedule replacement of her aortic valve. It is stenotic she states. Patient just had heart catheterization in the past week and states coronary arteries were normal. Her source of tired fatigue dizziness shortness of breath is because of aortic stenosis. She is had echocardiogram in the last 2 months for this. She states she was able to complete tasks as usual prior to yesterday. She would occasionally get very tired if she pushed herself but yesterday with very little activity just walking in her home she became very short of breath dizzy and tired. It did not improve today so she called the ambulance. She states she is not here for chest pain. Ambulance did give her aspirin and nitroglycerin but she states did not make any significant changes. Patient sees cardiology Dr Gonzalez. After history and exam CBC CMP EKG troponin chest x-ray MDM CC: Dizziness dyspnea Complicating co-morbidities: Aortic stenosis Data collected from: Patient and EMS Medical records reviewed: No recent visits here for this complaint Differential considered: Includes but not limited to aortic stenosis aortic regurgitation CHF STEMI non-STEMI angina Exam documented above, pertinent findings include: Systolic murmur Lab Test results independently reviewed as above. Pertinent findings: COVID negative WBC 6.8 hemoglobin 14.2 sodium 140 potassium 4.2 BUN 16 creatinine 1.1 GFR 51 troponin less than 0.012 x2, BNP 354 Independently reviewed EKG normal sinus rhythm, rate [address] elevation or depr ession Repeat EKG at 2:04 p.m.. Normal sinus rhythm normal EKG rate [address] elevation or depression Imaging studies independently reviewed: Chest x-ray no acute finding Echocardiogram shows severe aortic stenosis Consultations: 2:15 p.m.. Spoke with patient's speech language pathology assistant services for Dr. Gonzalez, no indication to transfer patient. He instructs for patient to have Lasix here to reduce likely pulmonary hypertension and despite BNP or chest x- ray this will likely improve her dyspnea. If improves in the emergency department can discharge on p.o. medication Lasix otherwise will need to admit overnight 6:30 p.m.. Spoke with [facility] Cardiology dr Bernabe, she is on-call for patient's speech language pathology assistant. At this time no emergent surgery for her aortic valve. However patient is 88% on ambulating and is hypoxic. Patient can be admitted to hospitalist Treatments: Lasix Re-evaluations: 2:30 p.m.. Updated patient my discussion with her cardiology team. She does agree to try for Lasix. 5:[address] Patient failed road test. Became very dizzy and short of breath just walking less than 30 ft. I did review with her she will likely need to be transferred to [facility] for continuity of care as we do not have cardiology services here as well as pulmonary. Discussion: Appropriate for transfer. We do not have cardiology services here or pulmonary services. Patient is source of dyspnea likely aortic stenosis getting worse. Diagnosis: Dyspnea 6:50 p.m. Brennick: Sign out to Dr Bello, awaiting call back from hospitalist for [facility] for continuity of care. Patient hypoxic 88% room air when trying to walk and very dizzy and weak. CT angiogram chest is pending results Dr Bello: Received turned over. Review patient's history and physical exam. Patient has been stable overnight. Has not been hypotensive. Patient has become dyspneic on exertion and hypoxic on exertion. I did discuss the case with hospitalist at [facility] who accepts the patient for transfer. Patient is stable for transport. We are awaiting bed placement. Care turned over to day provider to continue to observe until disposition. [0700] ([place]) Patient received in sign out from Dr. Gamble]. I have reviewed the clinical course and performed an independent history and physical exam. 1200 - [facility] accepts, has bed. We can call for transport. Accepting physician is Dr. Quijano at [facility]. Patient is aware of and in agreement with diagnosis and plan <Clark Varela, DO - Last Filed: 11/06/22 13:59> Critical Care Time Critical Care Time: Yes Total Critical Care Time: 35 Attestation: The high probability of a clinically significant, sudden or life threatening deterioration of the [CV] system(s) required my full and direct attention, intervention and personal management. The aggregate critical care time was [] minutes. This time is in addition to time spent performing reported procedures but includes the following: [x] Data Review and interpretation [x] Patient assessment and monitoring of vital signs [x] Documentation [x] Medication orders and management Discharge Plan Departure Patient Disposition: [facility] Clinical Impression: Aortic stenosis, severe, Acute dyspnea Prescriptions: No Action atorvastatin 20 mg tablet 20 mg PO DAILY pantoprazole 40 mg tablet,delayed release (DR/EC) 40 mg PO DAILY warfarin 2 mg tablet See Rx Instructions .ROUTE .COMPLEX Rx Instructions: Ceballos/e///Sat = 4 mg Mon/Fri = 3 mg Referrals: Lorraine Pagan MD [Primary Care Provider] -
[2022-11-05 12:40] LABS: Add Manual Diff / Slide Review NO; Basophils Absolute Auto 100 /uL (0-100); Basophils Percent Auto 0.9 % (0-2); Eosinophils Absolute Auto 200 /uL (0-450); Eosinophils Percent Auto 2.6 % (2-4); Hematocrit 41.6 % (36-46); Hemoglobin 14.2 g/dL (12.0-16.0); Lymphocytes Absolute Auto 1200 /uL (1100-4500); Mean Corpuscular Hemoglobin 28.5 PG (26-34); Mean Corpuscular Volume 83.7 fL (80-100); Monocytes Absolute Auto 300 /uL (0-900); Monocytes Percent Auto 5.1 % (3-14); Neutrophils Absolute Auto 5000 /uL (1500-7000); Neutrophils Percent Auto 74.4 % (50-75); Platelet Count 264 X10^3/uL (150-400); Red Blood Cell Count 4.97 X10^6/uL (4.0-5.2); Red Cell Distribution Width 14.9 % (11.6-14.8); White Blood Cell Count 6.8 X10^3/uL (4.5-11.0)
[2022-11-05 12:46] LABS: Alanine Aminotransferase 17 IU/L (<35); Albumin 4.1 g/dL (3.5-5.0); Albumin Globulin Ratio 1.2 (1.0-2.8); Alkaline Phosphatase 131 U/L (38-126); Aspartate Aminotransferase 22 IU/L (14-36); BUN Creatinine Ratio 14.4 (6-22); Bilirubin Total 0.8 mg/dL (0.2-1.3); Blood Urea Nitrogen 16 mg/dL (7-17); Calcium 9.5 mg/dL (8.4-10.2); Carbon Dioxide 28 mmol/L (22-32); Chloride 103 mmol/L (98-107); Creatine Kinase 49 U/L (30-135); Estimated Glomerular Filt Rate 51 mL/min (>60); Globulin 3.5 g/dL (1.7-4.1); Glucose 107 mg/dL (80-110); HEMOLYSIS < 15 (0-50); Lipase 176 U/L (23-300); Potassium 4.2 mmol/L (3.4-5.1); Sodium 140 mmol/L (137-145); Total Protein 7.6 g/dL (6.3-8.2)
[2022-11-05 12:58] LABS: Troponin I < 0.012 ng/mL (0.01-0.034)
--- NOTE | 2022-11-05 13:32 | PC.NURSE ---
Addendum entered by Sary Macdonald CNA 11/05/22 14:10: EMILIA Note: Called [facility] back and got a hold of the on-call Developer Programmer Analyst Dr. Heaton at [phone]. Original Note: EMILIA Note: Pt sees Dr Ness at [facility]. I attempted to call for a consult, but staff could not get a hold of him for some time. Paged his pager number multiple times but failed to go through. Staff member left a message with Dr. Ness's MA.
[2022-11-05 13:45] LABS: Bacteria Urine Occasional (0-1); Culture Indicated Urine Cult Not Indicated; RBC Urine 0-1/HPF (0-5/HPF); Squamous Epithelial Cell Urine 0-1 /HPF (0-5/HPF); WBC Urine 0-1/HPF (0-5/HPF)
--- NOTE | 2022-11-05 13:49 | DI.ECHO.S_ITS ---
[facility]---------+ [facility] +---------+ : : [address] : : : : [phone] : : : : Phone: [phone]---------+ Echocardiogram Report + + :Name: SIMON ZELAYA Study Date: 11/05/2022 Height: 66 in : :[employer] ReadingLocation: Weight: 190 lb : : Gender: Female BSA: 2.0 m2 : :: 1945 Age: 77 yrs BP: 121/60 mmHg: :Reason For Study: DYSPNEA : :Ordering Physician: MARLON, : :KIM Performed By: Ydaira Vang : :Referring: KIM MASON : + + Interpretation Summary 1) Normal left ventricular thickness, size, wall motion, and systolic function (EF 55-60%). 2) Normal right ventricular size with low normal function. 3) There is severe aortic stenosis (valve area 0.6cm2, mean gradient 43mmHg, severity ratio 0.23). 4) There is mild aortic regurgitation. 5) No prior Echo available for comparison. Recommend cardiology consult for severe aortic stenosis. Procedure: A two-dimensional transthoracic echocardiogram with color flow and Doppler was performed. Best images were from [facility]. There is no prior echocardiogram noted for this patient. The patient was in sinus rhythm with heart rates between 63-79 bpm during the exam. Left Ventricle: The left ventricle is normal in size and wall thickness. The ejection fraction is estimated to be 55-60%. Left ventricular systolic function appears normal without focal wall motion abnormalities. Diastolic parameters suggest a relaxation abnormality of the left ventricle, consistent with probable normal filling pressures. Right Ventricle: The right ventricle is normal size. Right ventricular systolic function is at the lower limits of normal. Atria: The left atrial size is normal. Right atrial size is normal. There is no Doppler evidence for an interatrial shunt. Mitral Valve: Calcified mitral apparatus. The mitral valve leaflets are moderately calcified. There is mild mitral stenosis. The mitral valve mean gradient is 3.8 mmHg. There is mild mitral regurgitation. Aortic Valve: There is severe aortic stenosis. The peak aortic velocity is 4.3 m/sec. The aortic valve mean gradient is 43 mmHg. The calculated aortic valve area is 0.58 cm2. There is mild aortic regurgitation. Tricuspid Valve: The tricuspid valve leaflets are thin and pliable. There is mild tricuspid regurgitation. The right ventricular systolic pressure is estimated to be at least 22 mmHg based on an estimated right atrial pressure of 3 mm Hg. Pulmonic Valve: The pulmonic valve is not well visualized. There is no pulmonic valvular regurgitation. Great Vessels: The aortic root is normal size. The dimensions of the ascending aorta are normal. The IVC is of normal diameter and collapses greater than 50% with a sniff. This suggests a low right atrial pressure of 3 mm Hg. Pericardium/ Pleura There is no pericardial effusion. There is no pleural effusion. MMode/2D Measurements & Calculations LVIDd: 3.9 cm LVOT diam: 1.9 cm LVIDs: 2.5 cm Ao root diam: 2.9 cm FS: 35.4 % asc Aorta Diam: 3.0 cm IVSd: 0.82 cm Ao Arch Diam (Prox Trans): 2.5 cm LVPWd: 0.84 cm LV hill. diameter/BSA (cm/m^2): 2.0 LV sys. diameter/BSA (cm/m^2): 1.3 LA A2 area: 23.2 cm2 RA long axis: 5.3 cm LA A4 area: 16.5 cm2 RA area: 13.8 cm2 LA length (vol): 5.4 cm RA vol: 30.4 ml LA vol: 60.7 ml RA : 15.6 ml/m2 LA vol index: 31.0 ml/m2 IVC diam: 0.91 cm RVD1 (basal): 3.1 cm RVD2 (mid): 2.6 cm TAPSE: 1.6 cm Doppler Measurements & Calculations Ao V2 max: 425.2 cm/sec LVOT Max Lennox: 88.6 cm/sec Ao V2 mean: 312.5 cm/sec LV V1 max P.1 mmHg Ao max P.3 mmHg LV V1 VTI: 20.9 cm Ao mean P.4 mmHg SHAWN(I,D): 0.64 cm2 Ao V2 VTI: 91.6 cm SHAWN(V,D): 0.58 cm2 sev ratio: 0.23 SHAWN indexed to BSA (cm^2/m^2): 0.32 AI P1/2t: 670.3 msec AI dec slope: 158.8 cm/sec2 MV E max lennox: 104.9 cm/sec TR max lennox: 220.0 cm/sec MV A max lennox: 157.6 cm/sec TR max P.4 mmHg MV E/A: 0.67 PA V2 max: 116.0 cm/sec Med Peak E' Lennox: 5.1 cm/sec PA V2 mean: 69.8 cm/sec E/E' med: 20.5 PA mean P.3 mmHg Lat Peak E' Lennox: 8.4 cm/sec PA pr(Accel): 36.2 mmHg E/E' lat: 12.4 E/e' average: 16.5 MV dec time: 0.50 sec MVA(VTI): 1.2 cm2 MV V2 mean: 90.1 cm/sec SV(LVOT): 58.2 ml MV mean P.8 mmHg MV V2 VTI: 47.7 cm Reading Physician:04:37 PM
[2022-11-05 14:01] LABS: NT-proBNP (BNP-Adult 18+) 354 pg/mL (<450)
[2022-11-05 14:46] LABS: Troponin I < 0.012 ng/mL (0.01-0.034)
[2022-11-05] MEDS: FUROSEMIDE 40 MG/4 ML VIAL 20 MG IV (15:17)
--- NOTE | 2022-11-05 17:25 | DI.CT.S_ITS ---
PROCEDURE: CT ANGIO CHEST PE PROTOCOL INDICATIONS: Dyspnea TECHNIQUE: After the administration of intravenous contrast, 2 mm thick sections acquired from the pulmonary apices to the posterior costophrenic angles. 3-dimensional maximum intensity projection (MIP) coronal and sagittal reformats were then acquired through the thorax. For radiation dose reduction, the following was used: automated exposure control, adjustment of mA and/or kV according to patient size. COMPARISON: [facility], CR, XR CHEST 1V, 11/05/2022, 12:10. FINDINGS: Image quality: Excellent. Pulmonary arteries: Pulmonary arteries are normal in size, and demonstrate no intraluminal filling defects to suggest central pulmonary embolism. Lungs and pleura: Lungs are clear. No pleural effusions or pneumothorax. Central and peripheral airways are patent. Mediastinum: Heart size is normal, without pericardial effusion. No mediastinal or hilar adenopathy. Thoracic aorta is normal in caliber and enhancement. Esophagus is normal in caliber, without hiatal hernia. Bones and chest wall: No suspicious bony lesions. Ribs and thoracic spine appear intact throughout. Thyroid gland is unremarkable. No axillary or supraclavicular adenopathy. Postoperative finding in the right breast. Right breast calcifications. Abdomen: Visualized upper abdominal solid organs appear normal in the early arterial phase of enhancement. Post cholecystectomy. Vascular coils near the splenic artery. IMPRESSION: 1. No pulmonary embolism. 2. No acute airspace opacity. Dictated by: Kelby Kilgore M.D. on 11/05/2022 at 19:27 Approved by: Kelby Kilgore M.D. on 11/05/2022 at 19:33
[2022-11-05 18:40] LABS: COVID19 -Nasal RAPID Negative (Negative)
--- NOTE | 2022-11-05 22:12 | PC.NURSE ---
BRAZING MACHINE OPERATOR HELPER note: Spoke to Gill at [facility]. Patient is accepted by their system, accepting doctor is Doctor Quijano. Gill gave me the number to the nursing water control supervisor moving forwards, and to call for a bed. [phone]. Called and spoke to [facility]. They're full, at 135% capacity. They will call us when they have a bed.
[2022-11-06] VITALS (34 sets, daily range): BP systolic 84–128; BP diastolic 50–70; PULSE 65–97; RESP 12–30; O2SAT 88–100
--- NOTE | 2022-11-06 08:04 | PC.NURSE ---
NYLON MACHINE OPERATOR Note: Called [facility] to get an update on bed placement. Currently no beds available, but will [facility] will call back with an update after discharges after 1400.
[2022-11-06 10:28] LABS: INR 2.4 (0.9-1.3); Prothrombin Time 27.5 SECONDS (10.1-12.7)
[2022-11-06 10:29] LABS: Add Manual Diff / Slide Review NO; Basophils Absolute Auto 100 /uL (0-100); Basophils Percent Auto 0.8 % (0-2); Eosinophils Absolute Auto 100 /uL (0-450); Eosinophils Percent Auto 2.1 % (2-4); Hematocrit 41.3 % (36-46); Hemoglobin 14.1 g/dL (12.0-16.0); Lymphocytes Absolute Auto 1200 /uL (1100-4500); Lymphocytes Percent Auto 17.1 % (25-40); Mean Corpuscular HGB Conc 34.2 % (30-36); Mean Corpuscular Hemoglobin 28.6 PG (26-34); Mean Corpuscular Volume 83.6 fL (80-100); Monocytes Absolute Auto 500 /uL (0-900); Monocytes Percent Auto 7.2 % (3-14); Neutrophils Absolute Auto 5200 /uL (1500-7000); Neutrophils Percent Auto 72.8 % (50-75); Platelet Count 264 X10^3/uL (150-400); Red Blood Cell Count 4.94 X10^6/uL (4.0-5.2); Red Cell Distribution Width 14.9 % (11.6-14.8); White Blood Cell Count 7.1 X10^3/uL (4.5-11.0)
[2022-11-06 10:31] LABS: PTT Partial Thromboplastin Tim 38 SECONDS (26-36)
[2022-11-06 10:35] LABS: Alanine Aminotransferase 18 IU/L (<35); Albumin Globulin Ratio 1.1 (1.0-2.8); Alkaline Phosphatase 99 U/L (38-126); Aspartate Aminotransferase 27 IU/L (14-36); BUN Creatinine Ratio 17.8 (6-22); Blood Urea Nitrogen 18 mg/dL (7-17); Calcium 9.1 mg/dL (8.4-10.2); Carbon Dioxide 24 mmol/L (22-32); Chloride 101 mmol/L (98-107); Creatine Kinase 49 U/L (30-135); Estimated Glomerular Filt Rate 57 mL/min (>60); Globulin 3.5 g/dL (1.7-4.1); Glucose 116 mg/dL (80-110); Potassium 4.6 mmol/L (3.4-5.1); Sodium 136 mmol/L (137-145); Total Protein 7.5 g/dL (6.3-8.2)
[2022-11-06 10:44] LABS: HEMOLYSIS 83 (0-50); Troponin I < 0.012 ng/mL (0.01-0.034)
--- NOTE | 2022-11-06 11:00 | PC.NURSE ---
Received report. Pt AAOx3. HR 80's when lying in bed. When pt stands to transfer to [facility] pt becomes bradycardic in the 30-40's and endorses lightheadedness and dizziness which resolves with lying back down. Pt transferred onto inpatient bed. Madi around 37 with quick recovery to 80's after remaining still. denies pain. med list reconciled and pt states she has not taken her warfarin in the past few days. New INR from this morning 2.4. Dr Varela made aware. Pt pending transfer to [facility]. Accepted and awaiting bed assignment.
--- NOTE | 2022-11-06 13:33 | PC.NURSE ---
Patient was up to [facility] and became bradycardic with symptoms of lightheadedness and short of breath. within 2 minutes patient was back to bed and heart rate increased to 80's, patient now smiling and oxygen saturation at 97%.
--- NOTE | 2022-11-06 14:33 | PC.NURSE ---
I had previously called [facility] to give report, Jordan called me back within 5 minutes, denies having any further questions for me after report.
== END 2022-11-06 14:18 | disposition short-term general hospital (02) ==
PROVIDERS: Emergency Medicine; Emergency Provider Emergency Medicine; PCP Internal Medicine Geriatric Medicine
DX: I35.0 Nonrheumatic aortic (valve) stenosis (principal); R06.00 Dyspnea, unspecified; R42 Dizziness and giddiness; R07.9 Chest pain, unspecified; Z95.5 Presence of coronary angioplasty implant and graft; Z20.822 Contact with and (suspected) exposure to COVID-19
CPT/HCPCS: 36415; 71045; 71275; 80053; 81003; 81015; 82550; 83690; 83880; 84484; 85025; 85610; 85730; 87635; 93005; 93306; 96374; 99285; 99291; C9803; J1940